=== PATIENT | male | born 1970 | race Two or more races ===

== ENCOUNTER 2021-01-22 14:26 | Outpatient (CLI) | payer OTHER | END 2021-01-22 14:41 | disposition home or self-care (01) | LOC: MRI 14:26 | PROVIDERS: ATTEND Pain Medicine Interventional Pain Medicine | DX: M51.37 Other intervertebral disc degeneration, lumbosacral region (principal); M54.17 Radiculopathy, lumbosacral region; M54.5 Low back pain | CPT/HCPCS: 72148 ==